=== PATIENT | female | born 1995 | race Caucasian/White ===

== ENCOUNTER 2016-10-29 18:09 | Emergency (ER) | payer BC, MEDICAID ==
[2016-10-29 18:37] VITALS: BP 109/65
--- NOTE | 2016-10-29 19:08 | UC ---
FLU HPI - HPI Summary HPI Summary: pt c/o of generalized malaise, nausea and "upset" stomach. Pt deneis fever chills, vomiting, diarrhea or possibility of . - History of Current Complaint Chief Complaint: UCGeneralIllness Stated Complaint: COUGH/CONGESTION/NAUSEA Time Seen by Provider: 10/29/16 18:52 Hx Obtained From: Patient Hx Last Menstrual Period: 10/27/16 ?: No Onset/Duration: Gradual Onset, Lasting Days Severity Currently: Mild Severity Initially: Mild Associated Signs & Symptoms: Positive: Myalgia - Allergy/Home Medications Allergies/Adverse Reactions: Allergies Allergy/AdvReac Type Severity Reaction Status Date / Time Latex Allergy Hives Verified 10/29/16 18:37 Home Medications: Home Medications Control Pill 1 tab DAILY 10/29/16 [History Confirmed 10/29/16] PMH/Surg Hx/FS Hx/Imm Hx Previously Healthy: Yes Endocrine History Of: Denies: Diabetes, Thyroid Disease Cardiovascular History Of: Denies: Cardiac Disorders, Hypertension Respiratory History Of: Reports: Asthma Denies: COPD GI/ History Of: Denies: Ulcer - Surgical History Surgical History: None - Family History Known Family History: Positive: Hypertension, Other - postive family history of vomiting - Social History Lives: With Family Alcohol Use: None Substance Use Type: None Smoking Status (MU): Light Every Day Tobacco Smoker Type: Cigarettes Amount Used/How Often: 1/2 ppd Length of Time of Smoking/Using Tobacco: since age 10 Have You Smoked in the Last Year: Yes When Did the Patient Quit Smoking/Using Tobacco: 4 MOS Household Exposure Type: Cigarettes - Immunization History Most Recent Influenza Vaccination: Not the Season Most Recent Tetanus Shot: pt refuses Most Recent Pneumonia Vaccination: none Review of Systems Constitutional: Negative Skin: Negative Eyes: Negative ENT: Negative Respiratory: Negative Cardiovascular: Negative Gastrointestinal: Abdominal Pain, Other - nausea Genitourinary: Negative Motor: Negative Neurovascular: Negative Musculoskeletal: Negative Neurological: Negative Psychological: Negative All Other Systems Reviewed And Are Negative: Yes Physical Exam Triage Information Reviewed: Yes Appearance: Well-Appearing Vital Signs: Initial Vital Signs Temp 99 F 10/29/16 18:33 Pulse 87 10/29/16 18:33 Resp 16 10/29/16 18:33 BP 109/65 10/29/16 18:33 Pulse Ox 99 10/29/16 18:33 Eye Exam: Normal ENT Exam: Normal Neck exam: Normal Respiratory Exam: Normal Cardiovascular Exam: Normal Abdominal Exam: Normal Musculoskeletal Exam: Normal Neurological Exam: Normal Psychological Exam: Normal Skin Exam: Normal Flu Course/Dx - Differential Dx/Diagnosis Differential Diagnosis/HQI/PQRI: Influenza, Upper Respiratory Infection Provider Diagnoses: viral syndrome Discharge - Discharge Plan Condition: Stable Disposition: HOME Patient Education Materials: Viral Syndrome (ED), Toothache (ED) Forms: *Work Release Referrals: No Primary Care Phys,NOPCP [Primary Care Provider] - [facility] [place] [facility] [Outside] Additional Instructions: Please follow up with your PCP or return to clinic as needed
== END 2016-10-29 19:18 | disposition home or self-care (01) ==
LOC: UCCORT 18:09
DX: B34.9 Viral infection, unspecified (principal); F17.210 Nicotine dependence, cigarettes, uncomplicated
CPT/HCPCS: 99211; G0463

== ENCOUNTER 2016-11-22 09:20 | Emergency (ER) | payer BC, MEDICAID ==
[2016-11-22 09:33] VITALS: BP 115/62
--- NOTE | 2016-11-22 10:16 | UC ---
FLU HPI - HPI Summary HPI Summary: Missed last period, has n/v feels like she has chills - History of Current Complaint Chief Complaint: UCRespiratory Stated Complaint: FEVER,CHILLS Time Seen by Provider: 11/22/16 10:10 Hx Obtained From: Patient Hx Last Menstrual Period: 10/27/16 ?: No Onset/Duration: Sudden Onset, Lasting Days, Still Present Severity Currently: Mild Severity Initially: Mild Pain Intensity: 4 Pain Scale Used: 0-10 Numeric Associated Signs & Symptoms: Positive: Fever - subjective, Cough, Vomiting - Allergy/Home Medications Allergies/Adverse Reactions: Allergies Allergy/AdvReac Type Severity Reaction Status Date / Time Latex Allergy Hives Verified 10/29/16 18:37 PMH/Surg Hx/FS Hx/Imm Hx Previously Healthy: No Endocrine History Of: Denies: Diabetes, Thyroid Disease Cardiovascular History Of: Denies: Cardiac Disorders, Hypertension Respiratory History Of: Reports: Asthma Denies: COPD GI/ History Of: Denies: Ulcer - Surgical History Surgical History: None - Family History Known Family History: Positive: Hypertension, Other - postive family history of vomiting - Social History 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 [employer] Lives: With Family Alcohol Use: None Substance Use Type: None Smoking Status (MU): Light Every Day Tobacco Smoker Type: Cigarettes Amount Used/How Often: 1/2 ppd Length of Time of Smoking/Using Tobacco: since age 10 Have You Smoked in the Last Year: Yes When Did the Patient Quit Smoking/Using Tobacco: 4 MOS Household Exposure Type: Cigarettes - Immunization History Most Recent Influenza Vaccination: Not the 2014/2015 Season Most Recent Tetanus Shot: pt refuses Most Recent Pneumonia Vaccination: none Review of Systems Constitutional: Fever - Subjective, Chills Skin: Negative Eyes: Negative ENT: Negative Respiratory: Negative Cardiovascular: Negative Gastrointestinal: Abdominal Pain - right side, Vomiting, Diarrhea Genitourinary: Negative Motor: Negative Neurovascular: Negative Musculoskeletal: Negative Neurological: Negative Psychological: Negative All Other Systems Reviewed And Are Negative: Yes Physical Exam Triage Information Reviewed: Yes Appearance: Well-Appearing, No Pain Distress, Well-Nourished Vital Signs: Initial Vital Signs Temp 99.4 F 11/22/16 09:30 Pulse 88 11/22/16 09:30 Resp 18 11/22/16 09:30 BP 115/62 11/22/16 09:30 Pulse Ox 99 11/22/16 09:30 Vital Signs Reviewed: Yes Eye Exam: Normal Eyes: Positive: Conjunctiva Clear ENT Exam: Normal ENT: Positive: Normal ENT inspection, Hearing grossly normal, Pharynx normal. Negative: Nasal congestion, Nasal drainage Dental Exam: Normal Neck exam: Normal Neck: Positive: 1 Respiratory Exam: Normal Cardiovascular Exam: Normal Abdominal Exam: Normal Musculoskeletal Exam: Normal Neurological Exam: Normal Psychological Exam: Normal Skin Exam: Normal Diagnostics - Laboratory Diagnostic Studies Completed/Ordered: ua +1 leuks, (-) preg, strep and flu Flu Course/Dx - Course Course Of Treatment: NPO, transfer to [facility] [place] for further evaluation - Differential Dx/Diagnosis Differential Diagnosis/HQI/PQRI: Upper Respiratory Infection, Other - rlq pain, fver, vomiting Provider Diagnoses: RLQ Pain - Physician Notifications Discussed Patient Care With: Dr. Ruiz Time Discussed With Above Provider: 11:10 Instructed by Provider To: Transfer Discharge - Discharge Plan Condition: Stable Disposition: AGAINST MEDICAL ADVICE Forms: *Work Release Referrals: No Primary Care Phys,NOPCP [Primary Care Provider] -
== END 2016-11-22 11:26 | disposition left against medical advice (07) ==
LOC: UCEAST 09:20
DX: R10.31 Right lower quadrant pain (principal); F17.200 Nicotine dependence, unspecified, uncomplicated; J45.909 Unspecified asthma, uncomplicated
CPT/HCPCS: 81003; 84702; 87086; 87502; 87651; 99212; G0463

== ENCOUNTER 2017-08-22 14:29 | Emergency (ER) | payer BC, MEDICAID ==
[2017-08-22 15:25] VITALS: BP 107/65
--- NOTE | 2017-08-22 15:25 | UC ---
Throat Pain/Nasal Armani HPI - HPI Summary HPI Summary: 22 year old 6 moth female presents with complains fever, chills and cough. - History of Current Complaint Stated Complaint: ST/NAUSEA/RUNNY NOSE Time Seen by Provider: 08/22/17 15:24 Hx Obtained From: Patient Hx Last Menstrual Period: 10/27/16 Onset/Duration: Sudden Onset Severity: Moderate - Allergies/Home Medications Allergies/Adverse Reactions: Allergies Allergy/AdvReac Type Severity Reaction Status Date / Time Latex Allergy Hives Verified 08/22/17 15:25 Home Medications: Home Medications NK [No Home Medications Reported] 08/22/17 [History Confirmed 08/22/17] PMH/Surg Hx/FS Hx/Imm Hx Previously Healthy: Yes - Surgical History Surgical History: None - Family History Known Family History: Positive: Hypertension, Other - postive family history of vomiting - Social History Alcohol Use: None Substance Use Type: None Smoking Status (MU): Light Every Day Tobacco Smoker Type: Cigarettes Amount Used/How Often: 1/2 ppd Length of Time of Smoking/Using Tobacco: since age 10 Have You Smoked in the Last Year: Yes When Did the Patient Quit Smoking/Using Tobacco: 4 MOS Household Exposure Type: Cigarettes - Immunization History Most Recent Influenza Vaccination: Not the 2014/2015 Season Most Recent Tetanus Shot: pt refuses Most Recent Pneumonia Vaccination: none Review of Systems Constitutional: Negative Skin: Negative Eyes: Negative ENT: Sore Throat, Nasal Discharge, Sinus Congestion, Sinus Pain/Tenderness Respiratory: Negative Cardiovascular: Negative Gastrointestinal: Negative Genitourinary: Negative Motor: Negative Neurovascular: Negative Musculoskeletal: Negative Neurological: Negative Psychological: Negative All Other Systems Reviewed And Are Negative: Yes Physical Exam Triage Information Reviewed: Yes Eye Exam: Normal ENT: Positive: Nasal congestion, Nasal drainage, Sinus tenderness Dental Exam: Normal Neck exam: Normal Neck: Positive: 1 Respiratory Exam: Normal Cardiovascular Exam: Normal Abdominal Exam: Normal Musculoskeletal Exam: Normal Neurological Exam: Normal Psychological Exam: Normal Skin Exam: Normal Throat Pain/Nasal Course/Dx - Differential Dx/Diagnosis Provider Diagnoses: sinusitis Discharge - Discharge Plan Condition: Stable Disposition: HOME Patient Education Materials: Pharyngitis (ED), Sinusitis (ED) Forms: *Work Release Referrals: No Primary Care Phys,NOPCP [Primary Care Provider] -
== END 2017-08-22 16:19 | disposition home or self-care (01) ==
LOC: UCCORT 14:29
DX: O99.512 Diseases of the respiratory system complicating pregnancy, second trimester (principal); O99.332 Smoking (tobacco) complicating pregnancy, second trimester; J32.9 Chronic sinusitis, unspecified; F17.210 Nicotine dependence, cigarettes, uncomplicated; Z91.040 Latex allergy status; Z3A.00 Weeks of gestation of pregnancy not specified
CPT/HCPCS: 87502; 87651; 99211; G0463

== ENCOUNTER 2017-12-12 07:43 | Inpatient (IN) | payer BC, MEDICAID ==
--- NOTE | 2017-12-12 08:53 | HP ---
General Information - General Information Maternal Age: 22 Grav: 6 Para: 4 SAB: 1 IEA: 1 Estimated Due Date: 12/17/17 Determined By: Early Ultrasound Gestational Age in Weeks and Days: 35 Weeks and 5 Days Maternal Blood Type and Rh: O Negative - Results this Serology/RPR Result: Non-Reactive Rubella Result: Non-Immune HBsAg Result: Negative HIV Result: Negative GBS Culture Result: Positive Past Medical History Delivery History: Hx Uncomplicated Vaginal Delivery Pertinent Past Medical History: See Records Pertinent Past Surgical History: See Records Pertinent Family History: See Records - Antepartal Records Antepartal Records: Reviewed, Uncomplicated Review of Systems Gastrointestinal: No Nausea/Vomiting Genitourinary: No Bleeding, No Leaking Fluid Musculoskeletal: Back Pain, Contractions Movement: Normal Exam Allergies/Adverse Reactions: Allergies latex Allergy (Intermediate, Verified 12/12/17 11:10) Hives - Measurements Pre- Weight: 135 lb - Exam Abdomen: No Upper Quadrant Pain Breast: Breast Exam Deferred Extremities: Edema Heart: Normal Rhythm/Heart Sounds HEENT: No Significant Findings Lungs: Clear Bilaterally Rectal: Rectal Exam Deferred Targeted Exam Findings Cervical Exam: 4cm Effacement: 80% Station: -1 Presenting Part: Vertex Membrane Status: AROM - meconium EFM Findings - External Monitor Findings Baseline Heart Rate: 125 External Monitor Findings: Accelerations Present, Variability Moderate Contractions: Mild, < 45 Seconds Assessment/Plan - Obstetrical Risk Factors Obstetrical Risk Factors: GBS Positive - Plan Plan: Induction
[2017-12-12] MEDS ORDERED: Penicillin G Potassium IV* 5,000,000 UNITS in NS 0.9% 100 ML* 100 ML IVPB ONE (09:00)
[2017-12-12] MEDS ORDERED: Oxytocin in LR* 20 UNITS/1,000 ML BAG IVPB SCH ×2 (09:00→15:00)
[2017-12-12 09:23] LABS: Hematocrit 38 % (35-47); Hemoglobin 12.6 g/dl (12.0-16.0); Mean Corpuscular HGB Conc 33 g/dl (31-36); Mean Corpuscular Hemoglobin 29 pg (27-31); Mean Corpuscular Volume 86 fL (80-97); Mean Platelet Volume 9.9 um3 (7.4-10.4); Platelet Count 189 10^3/ul (150-450); Red Blood Count 4.38 10^6/ul (4.0-5.4); Red Cell Distribution Width 14 % (10.5-15); White Blood Count 17.2 10^3/ul (3.5-10.8)
[2017-12-12 09:51] LABS: ABS Basophils 0.1 10^3/ul (0-0.2); ABS Eosinophils 0.2 10^3/ul (0-0.6); ABS Lymphocytes 2.7 10^3/ul (1.0-4.8); ABS Monocytes 1.4 10^3/ul (0-0.8); ABS Neutrophils 12.7 10^3/ul (1.5-7.7); ABS Nucleated RBC 0 10^3/ul; Eosinophil % 1.3 % (0-6); Nucleated Red Blood Cells % 0
[2017-12-12] MEDS ORDERED: OBEPIDURAL* 250 ML EPIDURAL ONE (11:50)
[2017-12-12] MEDS ORDERED: Phenylephrine IV* 40 MCG/ML 10 ML SYRINGE IV PUSH PRN ×2 (12:46)
[2017-12-12] MEDS ORDERED: Sodium Citrate/Citric Acid* 15 ML UDC PO PRN (12:46)
[2017-12-12] MEDS ORDERED: Penicillin G Potassium IV* 2,500,000 UNITS in NS 0.9% 100 ML* 100 ML IVPB SCH (13:00)
[2017-12-12] MEDS ORDERED: OBEPIDURAL* 250 ML EPIDURAL SCH (13:00)
[2017-12-12] MEDS ORDERED: Witch Hazel PAD* JAR ONE (14:44)
[2017-12-12] MEDS ORDERED: Dibucaine 1% 28.35 GM TUBE ONE (14:44)
[2017-12-12] MEDS ORDERED: Dibucaine 1% 28.35 GM TUBE PR PRN (14:45)
[2017-12-12] MEDS ORDERED: Measles, Mumps,Rubella VACC* 0.5 ML/VIAL SUBCUT ONE (14:45)
[2017-12-12] MEDS ORDERED: Tetan/Diph/Pertus SYR(Tdap)* 0.5 ML SYR(BOOSTRIX) use SYR IM ONE (14:45)
[2017-12-12] MEDS ORDERED: Acetaminophen TAB* 325 MG PO PRN (14:45)
[2017-12-12] MEDS ORDERED: Ibuprofen TAB* 600 MG PO PRN (14:45)
[2017-12-12] MEDS ORDERED: Glycerin ADULT SUPP PR PRN (14:45)
[2017-12-12] MEDS ORDERED: RHO D Immune Globulin (HUMAN)* 300 MCG = 1,500 I.U. INJ IM ONE (14:45)
[2017-12-12] MEDS ORDERED: Witch Hazel PAD* JAR TOPICAL PRN (14:45)
[2017-12-12] MEDS ORDERED: Aspirin 81 mg CHEW TAB* 81 MG TAB.CHEW PO SCH (17:00)
[2017-12-12] MEDS ORDERED: EPHEDrine (Pressors)* 50 MG/ML VIAL ONE (17:22)
[2017-12-12] MEDS ORDERED: Simethicone TAB* 80 MG TAB.CHEW PO SCH (17:30)
[2017-12-12] MEDS: Docusate CAP* 100 MG PO SCH (20:54)
[2017-12-13 07:14] LABS: Hematocrit 34 % (35-47); Hemoglobin 11.4 g/dl (12.0-16.0); Mean Corpuscular HGB Conc 34 g/dl (31-36); Mean Corpuscular Hemoglobin 29 pg (27-31); Mean Corpuscular Volume 86 fL (80-97); Mean Platelet Volume 9.6 um3 (7.4-10.4); Platelet Count 159 10^3/ul (150-450); Red Blood Count 3.94 10^6/ul (4.0-5.4); Red Cell Distribution Width 14 % (10.5-15)
[2017-12-13 07:31] LABS: ABS Basophils 0.1 10^3/ul (0-0.2); ABS Eosinophils 0.2 10^3/ul (0-0.6); ABS Lymphocytes 3.3 10^3/ul (1.0-4.8); ABS Monocytes 1.6 10^3/ul (0-0.8); ABS Neutrophils 11.8 10^3/ul (1.5-7.7); ABS Nucleated RBC 0 10^3/ul; Eosinophil % 1.4 % (0-6); Lymphocyte % 19.2 % (25-47); Nucleated Red Blood Cells % 0.1
[2017-12-13] MEDS ORDERED: Ferrous Gluconate TAB* 324 MG TAB PO SCH (09:00)
[2017-12-13] MEDS: Docusate CAP* 100 MG PO SCH ×3 (11:02→16:03)
[2017-12-13 12:01] VITALS: BP 103/69
== END 2017-12-13 16:25 | disposition home or self-care (01) | DRG 560 ==
LOC: MCHOBOUT 07:43 → MCHOB 08:49
PROVIDERS: ADMIT Obstetrics & Gynecology; ATTEND Obstetrics & Gynecology
PROC: 10907ZC Drainage of Amniotic Fluid, Therapeutic from Products of Conception, Via Natural or Artificial Opening (ICD-10-PCS; principal; 2017-12-12)
PROC: 3E033VJ Introduction of Other Hormone into Peripheral Vein, Percutaneous Approach (ICD-10-PCS; 2017-12-12)
PROC: 10E0XZZ Delivery of Products of Conception, External Approach (ICD-10-PCS; 2017-12-12)
PROC: 4A1HXCZ Monitoring of Products of Conception, Cardiac Rate, External Approach (ICD-10-PCS; 2017-12-12)
PROC: 0HQ9XZZ Repair Perineum Skin, External Approach (ICD-10-PCS; 2017-12-12)
DX: O76 Abnormality in fetal heart rate and rhythm complicating labor and delivery (principal); O99.824 Streptococcus B carrier state complicating childbirth; Z91.040 Latex allergy status; Z86.718 Personal history of other venous thrombosis and embolism; Z79.82 Long term (current) use of aspirin; Z3A.39 39 weeks gestation of pregnancy; Z37.0 Single live birth; O70.1 Second degree perineal laceration during delivery; O77.0 Labor and delivery complicated by meconium in amniotic fluid
CPT/HCPCS: 36415; 85025; 86850; 86900; 86901; A9270-GY; J2540

== ENCOUNTER 2019-07-23 16:26 | Emergency (ER) | payer BC, MEDICAID ==
[2019-07-23 16:50] VITALS: BP 113/67
--- NOTE | 2019-07-23 18:00 | UC ---
Complaint Female HPI - HPI Summary HPI Summary: Patient presents to urgent care requesting a note that states she's aswell as evaluation for possible yeast infection. Patient 004. Patient states her last pain was apparently 4 months ago which was the same time. Positive test. Patient states she has not been able see her [employer] [employer] doctor that she does not yet have health insurance. Patient states she needs a note to stitches she get health insurance. Patient states for the last 4-5 days she's had some white vaginal discharge. Patient's is mild itching. Patient concerned she has a yeast infection like to be tested. Patient has had yeast infections in the past but the last one was couple years ago. No burning no bleeding no odor. No loss of fluid. No back pain. Patient is not taking vitamins. Patient states she did quit smoking. Patient's medications as altered in the EMR by triage nurse for this visit. - History Of Current Complaint Chief Complaint: UCGeneralIllness Stated Complaint: URINARY/PERSONAL Time Seen by Provider: 07/23/19 17:04 Hx Obtained From: Patient Hx Last Menstrual Period: lmp approx Mar 2019 ?: Yes Pain Intensity: 0 Pain Scale Used: 0-10 Numeric - Allergies/Home Medications Allergies/Adverse Reactions: Allergies Allergy/AdvReac Type Severity Reaction Status Date / Time latex Allergy Intermediate Hives Verified 07/23/19 16:44 PMH/Surg Hx/FS Hx/Imm Hx Previously Healthy: Yes - Surgical History Surgical History: None - Family History Known Family History: Positive: Hypertension, Other - postive family history of vomiting, Non-Contributory - Social History Occupation: Employed Full-time - [employer] Lives: With Family Alcohol Use: None Substance Use Type: None Smoking Status (MU): Former Smoker Type: Cigarettes Amount Used/How Often: 1/2 ppd Length of Time of Smoking/Using Tobacco: since age 10 Have You Smoked in the Last Year: Yes When Did the Patient Quit Smoking/Using Tobacco: 4 MOS Household Exposure Type: Cigarettes - Immunization History Most Recent Influenza Vaccination: Not the 2015/2016 Season Most Recent Tetanus Shot: pt refuses Most Recent Pneumonia Vaccination: none Review of Systems All Other Systems Reviewed And Are Negative: Yes Constitutional: Positive: Negative Skin: Positive: Negative Eyes: Positive: Negative Genitourinary: Positive: Vaginal/Penile Itching, Vaginal/Penile Discharge. Negative: Hematuria, Frequency, Urgency, Vaginal/Penile Burning Physical Exam - Summary Physical Exam Summary: Vital Signs Reviewed: Yes A+Ox3, no distress Eyes: Conjunctiva Clear, ENT: Hearing grossly normal, mmmoist Neck: Positive: Supple Respiratory: Positive: No respiratory distress, No accessory muscle use + CTA throughout no w/r Cardiovascular: RRR nl s1, s2 no m/r CBT <2 sec abd soft + BS nt/nd no guarding, no distension : RN at bedside - no external lesions Pt with thin, white discharge in os no odor, no pain, no cmt no bleeding Musculoskeletal Exam: VO x 4 without difficulty Strength Intact, ROM Intact Neurological: Positive: Alert, + sensation throughout Psychological: Positive: Normal Response To examiner Skin: Positive: no rash, no ecchymosis Triage Information Reviewed: Yes Vital Signs: Initial Vital Signs Temp 97.5 F 07/23/19 16:45 Pulse 80 07/23/19 16:45 Resp 16 07/23/19 16:45 BP 113/67 07/23/19 16:45 Pulse Ox 100 07/23/19 16:45 Complaint Female Dx - Course Course Of Treatment: Patient presents to urgent care with 2 requests. One, patient states her last visit. This 4 months ago. Patient trying to get insurance so she can see her OB. Patient states she needs a examination positive test. Secondly, patient states she's been having some white discharge for last 4-5 days. Patient denies any other symptoms. Patient presents may have a vaginal yeast infection. On exam vital signs are stable. Patient's test is positive. Patient's urinalysis is negative for infection. On exam patient is a thin white discharge. Affirm taken the chest for BV as well as vaginal yeast. After discussion with patient, we'll hold on treatment pending the results. Patient will immediately today's call her. Patient comfortably. Patient was given a prescription for vitamins as well as X prescription. Patient recommended follow up with her URGENT CARE PHYSICIAN returns. Patient declined any offers to help with referrals for OB or her insurance. - Differential Dx/Diagnosis Provider Diagnosis: , Vaginitis Discharge ED - Sign-Out/Discharge Documenting (check all that apply): Patient Departure All imaging exams completed and their final reports reviewed: No Studies - Discharge Plan Condition: Stable Disposition: HOME Prescriptions: Pnv No.95/Ferrous Fum/Folic AC [ Multivitamin Tablet] 1 each PO DAILY # 30 tablet Patient Education Materials: (ED), Vaginitis (ED) Forms: *Gen. Provider Communication Referrals: [facility] [Outside] No Primary Care Phys,NOPCP [Primary Care Provider] - Additional Instructions: As discussed, you had testing today for both vaginal yeast infection and bacterial vaginosis. These results take 1-2 days to come back. We are not treating you today - you will receive a call from a care steam room attendant and a prescription will be sent to the pharmacy for you if you need treatment It is recommend you take vitamins contact your OB doctor to schedule an appointment once you get health insurance established - Billing Disposition and Condition Condition: STABLE Disposition: Home
== END 2019-07-23 17:48 | disposition home or self-care (01) ==
LOC: UCCORT 16:26
DX: O23.599 Infection of other part of genital tract in pregnancy, unspecified trimester (principal); Z91.040 Latex allergy status; Z87.891 Personal history of nicotine dependence; Z3A.00 Weeks of gestation of pregnancy not specified
CPT/HCPCS: 81003; 84702; 87480; 87510; 99212; G0463

== ENCOUNTER 2019-08-07 11:21 | Emergency (ER) | payer SELFPAY ==
--- NOTE | 2019-08-07 12:28 | UC ---
Hand/Wrist HPI - HPI Summary HPI Summary: FELL AT WORK YESTERDAY 2 TIMES. THE FIRST TIME SHE FOOSHED ON HER RIGHT HAND. THE SECOND TIME SHE FELL ON HER BACK. COMES IN WITH PERSISTENT PAIN TODAY. NO NUMBNESS OR TINGLING OR WEAKNESS. STATES SHE IS . LMP AT THE END OF MARCH. HAS HAD NO CARE TO THIS POINT. HAD SOME MILD SPOTTING LAST NIGHT BUT NONE TODAY. BABY IS MOVING WELL. NO LOSS OF FLUID OR CONTRACTIONS. NO ABDOMINAL PAIN. - History Of Current Complaint Chief Complaint: UCUpperExtremity Stated Complaint: WRIST AND BACK INJURY Time Seen by Provider: 08/07/19 11:28 Hx Obtained From: Patient, Family/Floors Buffer - Hx Last Menstrual Period: 04/17/19 Onset/Duration: Sudden Onset, Lasting Days - 1 DAY, Still Present Severity Initially: Moderate Severity Currently: Moderate Pain Intensity: 7 Pain Scale Used: 0-10 Numeric Character Of Pain: Sharp Aggravating Factor(s): Movement Alleviating Factor(s): Rest Associated Signs And Symptoms: Positive: Negative Related History: Dominant Hand Right - Allergies/Home Medications Allergies/Adverse Reactions: Allergies Allergy/AdvReac Type Severity Reaction Status Date / Time latex Allergy Intermediate Hives Verified 07/23/19 16:44 Home Medications: Home Medications NK [No Home Medications Reported] 08/07/19 [History Confirmed 08/07/19] PMH/Surg Hx/FS Hx/Imm Hx Respiratory History: Asthma - Surgical History Surgical History: None - Family History Known Family History: Positive: Hypertension, Other - postive family history of vomiting, Non-Contributory - Social History Alcohol Use: None Substance Use Type: None Smoking Status (MU): Former Smoker Type: Cigarettes Amount Used/How Often: 1/2 ppd Length of Time of Smoking/Using Tobacco: since age 10 Have You Smoked in the Last Year: Yes When Did the Patient Quit Smoking/Using Tobacco: 4 MOS Household Exposure Type: Cigarettes - Immunization History Most Recent Influenza Vaccination: Not the 2014/2015 Season Most Recent Tetanus Shot: pt refuses Most Recent Pneumonia Vaccination: none Review of Systems All Other Systems Reviewed And Are Negative: Yes Constitutional: Positive: Negative Skin: Positive: Negative Respiratory: Positive: Negative Cardiovascular: Positive: Negative Gastrointestinal: Positive: Negative Musculoskeletal: Positive: Arthralgia. Negative: Edema Physical Exam Triage Information Reviewed: Yes Appearance: Well-Appearing, No Pain Distress, Well-Nourished Vital Signs: Initial Vital Signs Temp 98.9 F 08/07/19 11:30 Pulse 104 08/07/19 11:30 Resp 18 08/07/19 11:30 BP 110/69 08/07/19 11:30 Pulse Ox 96 08/07/19 11:30 Vital Signs Reviewed: Yes Eyes: Positive: Conjunctiva Clear ENT: Positive: Hearing grossly normal Neck: Positive: Supple Respiratory: Positive: No respiratory distress, No accessory muscle use Cardiovascular: Positive: Pulses Normal Abdomen Description: Positive: Nontender - GRAVID, Soft Musculoskeletal: Positive: ROM Intact, No Edema, Other: - TTP DIFFUSELY OVER RIGHT WRIST. NO FOCAL BONY TENDERNESS OF RIGHT WRIST OR SPINE. NO SNUFF BOX TENDERNESS OR PAIN WITH AXIAL LOADING. Neurological: Positive: Alert Psychological: Positive: Age Appropriate Behavior Skin: Negative: Rashes Hand/Wrist Course/Dx - Course Course Of Treatment: LOW SUSPICION FOR ANY ACUTE BONY INJURY ON PHYSICAL EXAM TODAY. GIVEN PATIENT' S WILL HOLD OFF ON ANY IMAGING. THUMB SPICA SPLINT SPLINT APPLIED BY RN. TYLENOL FOR DISCOMFORT. ADVISED NO NSAIDS IN . SHE IS TO FOLLOW- UP WITH ORTHOPEDICS IF HER SYMPTOMS ARE NOT IMPROVING OVER THE NEXT WEEK OR SO. THE BENEFITS MAY OUTWEIGH THE RISKS OF IMAGING AT THAT TIME. - Differential Dx/Diagnosis Differential Diagnosis/HQI/PQRI: Dislocation Provider Diagnosis: Right wrist sprain, Acute back pain Discharge ED - Sign-Out/Discharge Documenting (check all that apply): Patient Departure All imaging exams completed and their final reports reviewed: No Studies - Discharge Plan Condition: Stable Disposition: HOME Patient Education Materials: Wrist Sprain (ED) Referrals: [facility] [Provider Group] - [facility] [Outside] - If Needed Court Kearney MD [Medical Doctor] - If Needed Additional Instructions: LOW SUSPICION FOR ANY ACUTE BONY INJURY TO YOUR BACK OR RIGHT WRIST ON PHYSICAL EXAM TODAY. GIVEN YOUR CURRENT WILL HOLD OFF ON ANY IMAGING FOR NOW. WEAR THE THUMB SPICA SPLINT AT NIGHT AND DURING THE DAY WHEN ACTIVE. YOUR SYMPTOMS SHOULD IMPROVE OVER THE NEXT WEEK OR SO. IF THEY DO NOT FOLLOW-UP WITH ORTHOPEDICS FOR FURTHER EVALUATION. NO IBUPROFEN IN . TAKE TYLENOL ONLY TO HELP YOUR DISCOMFORT. BE SURE TO GO THROUGH SLOW RANGE OF MOTION AND STRETCHING EXERCISES DAILY YOU ARE ABLE TO PREVENT YOUR BACK FROM STIFFENING UP AND MAKING THE DISCOMFORT WORSE. GO TO THE ED WITHOUT FAIL IF YOU DEVELOP NUMBNESS/TINGLING IN YOUR LEGS, NUMBNESS IN THE GENITAL REGION, LOSS OF BOWEL/BLADDER CONTROL, INTOLERABLE PAIN , BABY STOPS MOVING, YOU DEVELOP VAGINAL BLEEDING/LOSS OF FLUID OR ANY OTHER CONCERNING SYMPTOMS. CALL [facility]ON YOUR INSURANCE IS SET UP FOR YOUR CARE. TAKE A DAILY VITAMIN. CALL THE NUMBER BELOW FOR ASSISTANCE IN ESTABLISHING WITH A PCP An additional resource available to assist in finding the appropriate physician for your health care needs is the [facility]erral [facility] ([facility]). You may contact them by calling [phone]. - Billing Disposition and Condition Condition: STABLE Disposition: Home
[2019-08-07 13:47] VITALS: BP 110/69
== END 2019-08-07 12:29 | disposition home or self-care (01) ==
LOC: UCEAST 11:21
DX: S63.501A Unspecified sprain of right wrist, initial encounter (principal); M54.9 Dorsalgia, unspecified; J45.909 Unspecified asthma, uncomplicated; Z91.040 Latex allergy status; Z87.891 Personal history of nicotine dependence; W19.XXXA Unspecified fall, initial encounter; Y92.9 Unspecified place or not applicable; Y99.0 Civilian activity done for income or pay
CPT/HCPCS: 99212; G0463

== ENCOUNTER 2020-03-03 08:08 | Inpatient (IN) ==
[2020-03-03] MEDS ORDERED: Lactated Ringers 1000 ml BAG 1,000 ML IV ONE (08:35)
[2020-03-03] MEDS ORDERED: Lactated Ringers 1000 ml BAG 1,000 ML IV SCH ×2 (09:00→14:00)
[2020-03-03] MEDS ORDERED: Oxytocin in LR 20 UNITS/1,000 ML BAG IVPB ONE (09:22)
[2020-03-03 09:24] LABS: Hematocrit 36 % (35-47); Hemoglobin 12.4 g/dL (12.0-16.0); Mean Corpuscular HGB Conc 34 g/dL (31-36); Mean Corpuscular Hemoglobin 30 pg (27-31); Mean Corpuscular Volume 88 fL (80-97); Mean Platelet Volume 10.1 fL (7.4-10.4); Platelet Count 173 10^3/uL (150-450); Red Blood Count 4.12 10^6 /uL (3.70-4.87); Red Cell Distribution Width 13 % (10-15); White Blood Count 15.6 10^3/uL (3.5-10.8)
[2020-03-03 09:41] LABS: Urine Benzodiazepine Screen None Detected (None Detect); Urine Opiates Screen None Detected (None Detect)
[2020-03-03 09:50] LABS: Activated Partial Thrombo Time 28.8 seconds (26.0-38.0); Fibrinogen 388.9 mg/dL (110.8-404.3); INR 0.92 (0.82-1.09)
[2020-03-03] MEDS ORDERED: Oxytocin in LR 20 UNITS/1,000 ML BAG IVPB SCH (10:00)
[2020-03-03 10:01] LABS: ABS Basophils 0.1 10^3/ul (0-0.2); ABS Eosinophils 0.2 10^3/ul (0-0.6); ABS Lymphocytes 2.9 10^3/ul (1.0-4.8); ABS Monocytes 1.2 10^3/ul (0-0.8); Eosinophil % 1.5 %; Lymphocyte % 18.4 %; Nucleated Red Blood Cells % 0.1; Platelet Count 173 10^3/ul (150-450); Schistocytes ABSENT
[2020-03-03] MEDS ORDERED: Dibucaine 1% OINT 28.35 GM TUBE ONE (13:00)
[2020-03-03] MEDS ORDERED: Witch Hazel PAD JAR ONE (13:00)
[2020-03-03] MEDS ORDERED: Dibucaine 1% OINT 28.35 GM TUBE PR PRN (13:20)
[2020-03-03] MEDS ORDERED: RHO D Immune Globulin (HUMAN) 300 MCG = 1,500 I.U. INJ IM ONE (13:20)
[2020-03-03] MEDS ORDERED: Witch Hazel PAD JAR TOPICAL PRN (13:20)
[2020-03-03] MEDS ORDERED: Glycerin ADULT 2.4 gm SUPP PR PRN (13:20)
[2020-03-04 07:10] LABS: ABS Basophils 0.1 10^3/ul (0-0.2); ABS Eosinophils 0.3 10^3/ul (0-0.6); ABS Lymphocytes 4.2 10^3/ul (1.0-4.8); ABS Monocytes 1.5 10^3/ul (0-0.8); Eosinophil % 1.6 %; Hematocrit 34 % (35-47); Hemoglobin 11.9 g/dL (12.0-16.0); Lymphocyte % 23.5 %; Mean Corpuscular HGB Conc 35 g/dL (31-36); Mean Corpuscular Hemoglobin 31 pg (27-31); Mean Corpuscular Volume 88 fL (80-97); Mean Platelet Volume 9.9 fL (7.4-10.4); Platelet Count 166 10^3/uL (150-450); Red Blood Count 3.89 10^6 /uL (3.70-4.87); Red Cell Distribution Width 13 % (10-15); White Blood Count 17.7 10^3/uL (3.5-10.8)
[2020-03-04 11:39] VITALS: BP 111/75
== END 2020-03-04 17:22 | disposition home or self-care (01) | DRG 541 ==
LOC: MCHOBOUT 08:08 → MCHOB 08:35
PROVIDERS: ADMIT Obstetrics & Gynecology; ATTEND Obstetrics & Gynecology